=== PATIENT | female | born 1955 | race Caucasian/White ===

== ENCOUNTER 2018-06-10 15:49 | Emergency (ER) | payer MEDICARE, OTHER ==
[~2018-06-10] VITALS: Ht 162.6 cm; Wt 62.0 kg
[~2018-06-10 15:49] MED LIST: ASPI-611 PO; BAC10T PO; CARV3.12 PO; CLOP75TA35 PO; DOCU-28 PO; DULO-31 PO; FING0.5C3 PO; LISI-600 PO; LORA1TAB PO; LYR75C PO; MONT10TA24 PO; MULT-821 PO; OMEP-84 PO; PER10325T PO; PRAV40TA65 PO
[2018-06-10 16:16] LABS: BASOPHILS % (AUTO) 0.5 % (0-1); EOSINOPHILS # (AUTO) 0.1 X10'3 (0-0.9); EOSINOPHILS % (AUTO) 2.2 % (0-6); HEMOGLOBIN 15.3 g/dl (12.0-16.0); LYMPHOCYTES # (AUTO) 0.2 X10'3 (1.1-4.8); LYMPHOCYTES % (AUTO) 3.7 % (21-51); MEAN CORPUSCULAR HEMOGLOBIN 33.5 PG (27.0-31.0); MEAN CORPUSCULAR HGB CONC 34.1 % (33.0-36.5); MEAN CORPUSCULAR VOLUME 98.3 FL (78-98); MEAN PLATELET VOLUME 7.5 FL (7.4-10.4); MONOCYTES # (AUTO) 0.4 X10'3 (0-0.9); MONOCYTES % (AUTO) 8.4 % (2-12); NEUTROPHILS # (AUTO) 4.3 X10'3 (1.8-7.7); NEUTROPHILS % (AUTO) 85.2 % (42-75); PLATELET COUNT 233 X10'3 (140-440); RED BLOOD COUNT 4.57 X10'6 (4.20-5.60); RED CELL DISTRIBUTION WIDTH 13.5 % (11.5-14.5)
[2018-06-10 16:28] LABS: PARTIAL THROMBOPLASTIN TIME 29 SECONDS (22-32); PROTHROMBIN TIME 10.1 SECONDS (9.0-12.0)
[2018-06-10 16:29] LABS: CLARITY,URINE CLEAR (Clear); COLOR,URINE YELLOW (Yellow); GLUCOSE, URINE NEGATIVE (Neg); KETONES,URINE NEGATIVE (Neg); LEUKOCYTE ESTERASE ,URINE NEGATIVE (Neg); NITRITES, URINE NEGATIVE (Neg); OCCULT BLOOD,URINE NEGATIVE (Neg); PROTEIN,URINE NEGATIVE (Neg); UROBILINOGEN,URINE 0.2 E.U/dL (0.2-1.0)
[2018-06-10 16:31] LABS: UA COLLECTION TYPE CLN CATCH MIDSTREAM
[2018-06-10 16:31] LABS: ALANINE AMINOTRANSFERASE 21 U/L (12-78); ALBUMIN 3.9 G/DL (3.4-5.0); ALKALINE PHOSPHATASE 79 IU/L (46-116); ANION GAP 5 (8-16); ASPARTATE AMINO TRANSFERASE 18 U/L (10-37); BILIRUBIN,TOTAL 0.8 MG/DL (0.1-1.0); BLOOD UREA NITROGEN 26 MG/DL (7-18); BUN/CREATININE RATIO 37.1 (6.6-38.0); CALCIUM 9.7 MG/DL (8.5-10.1); CHLORIDE 103 MMOL/L (99-107); GLUCOSE 132 MG/DL (70-104); POTASSIUM 4.3 MMOL/L (3.5-5.1); SODIUM 141 MMOL/L (135-145); TOTAL CARBON DIOXIDE 33.1 MMOL/L (24-32); TOTAL PROTEIN 7.8 G/DL (6.4-8.2); eGFR 85 ML/MIN
[2018-06-10] MEDS ORDERED: BISA-155 PO (17:43)
[2018-06-10] MEDS ORDERED: MAGN296S50 PO (17:43)
[2018-06-10 18:05] VITALS: BP 136/70
== END 2018-06-10 18:08 | disposition home or self-care (01) ==
LOC: ER 15:49
DX: R07.89 Other chest pain (principal); K59.00 Constipation, unspecified; I10 Essential (primary) hypertension; I25.2 Old myocardial infarction; J45.909 Unspecified asthma, uncomplicated; K21.9 Gastro-esophageal reflux disease without esophagitis; G89.29 Other chronic pain; Z95.1 Presence of aortocoronary bypass graft; Z79.82 Long term (current) use of aspirin; Z88.1 Allergy status to other antibiotic agents; Z88.8 Allergy status to other drugs, medicaments and biological substances
CPT/HCPCS: 36415; 71045; 80053; 81003; 84484; 85025; 85610; 85730; 93005; 99285

== ENCOUNTER 2019-09-06 14:20 | Emergency (ER) | payer MEDICARE ==
[~2019-09-06] VITALS: Ht 162.6 cm; Wt 68.0 kg
[~2019-09-06 14:20] MED LIST changes: +BISA-155 PO; +MAGN296S50 PO
[2019-09-06 14:34] VITALS: BP 130/53
[2019-09-06] MEDS ORDERED: ketorolac tromethamine 15mg/ml inj. IM ONE (15:10)
--- NOTE | 2019-09-06 15:22 | NUR ---
pt medicated with pain inj torodol .pt to x ray.significant other atbedside.
[2019-09-06] MEDS ORDERED: HYDR-4383 PO (15:59)
[2019-09-06] MEDS ORDERED: ONDA4TAB6 PO (15:59)
== END 2019-09-06 16:04 | disposition home or self-care (01) ==
LOC: ER 14:21
DX: M54.6 Pain in thoracic spine (principal); I10 Essential (primary) hypertension; I25.2 Old myocardial infarction; K21.9 Gastro-esophageal reflux disease without esophagitis; J45.909 Unspecified asthma, uncomplicated; G89.29 Other chronic pain; F32.9 Major depressive disorder, single episode, unspecified; Z98.61 Coronary angioplasty status; Z88.1 Allergy status to other antibiotic agents; Z88.8 Allergy status to other drugs, medicaments and biological substances; Z79.82 Long term (current) use of aspirin; Z79.899 Other long term (current) drug therapy; W01.0XXA Fall on same level from slipping, tripping and stumbling without subsequent striking against object, initial encounter; Y93.89 Activity, other specified; Y92.89 Other specified places as the place of occurrence of the external cause; Y99.8 Other external cause status
CPT/HCPCS: 72070; 99283; J1885; 99284

== ENCOUNTER 2020-08-26 16:40 | Emergency (ER) | payer MEDICARE, MEDICAID ==
[~2020-08-26] VITALS: Ht 165.1 cm; Wt 72.7 kg
[~2020-08-26 16:40] MED LIST changes: +HYDR-4383 PO; -MAGN296S50 PO; +MAGN296S70 PO; -MONT10TA24 PO; +MONT10TA26 PO; +ONDA4TAB6 PO
[2020-08-26 17:29] LABS: BASOPHILS % (AUTO) 0.4 % (0-1); EOSINOPHILS # (AUTO) 0.1 X10'3 (0-0.9); EOSINOPHILS % (AUTO) 1.2 % (0-6); HEMATOCRIT 39.5 % (35.0-45.0); HEMOGLOBIN 13.4 g/dl (12.0-16.0); LYMPHOCYTES # (AUTO) 0.6 X10'3 (1.1-4.8); LYMPHOCYTES % (AUTO) 11.6 % (21-51); MEAN CORPUSCULAR HEMOGLOBIN 31.4 PG (27.0-31.0); MEAN CORPUSCULAR HGB CONC 33.9 g/dL (33.0-36.5); MEAN CORPUSCULAR VOLUME 92.7 FL (78-98); MEAN PLATELET VOLUME 7.2 FL (7.4-10.4); MONOCYTES # (AUTO) 0.5 X10'3 (0-0.9); MONOCYTES % (AUTO) 10.7 % (2-12); NEUTROPHILS # (AUTO) 3.8 X10'3 (1.8-7.7); NEUTROPHILS % (AUTO) 76.1 % (42-75); PLATELET COUNT 248 X10'3 (140-440); RED BLOOD COUNT 4.26 X10'6 (4.20-5.60); RED CELL DISTRIBUTION WIDTH 16.4 % (11.5-14.5)
[2020-08-26 17:44] LABS: ALANINE AMINOTRANSFERASE 38 U/L (12-78); ALBUMIN 3.5 G/DL (3.4-5.0); ALBUMIN/GLOBULIN RATIO 0.9 (1.1-1.5); ALKALINE PHOSPHATASE 88 IU/L (46-116); ANION GAP 8 (8-16); ASPARTATE AMINO TRANSFERASE 27 U/L (10-37); BILIRUBIN,TOTAL 0.8 MG/DL (0.1-1.0); BLOOD UREA NITROGEN 17 MG/DL (7-18); CALCIUM 9.4 MG/DL (8.5-10.1); CHLORIDE 101 MMOL/L (99-107); CREATININE 0.68 MG/DL (0.40-0.90); GLUCOSE 189 MG/DL (70-104); POTASSIUM 3.9 MMOL/L (3.5-5.1); SODIUM 137 MMOL/L (135-145); TOTAL PROTEIN 7.4 G/DL (6.4-8.2); eGFR 87 ML/MIN
--- NOTE | 2020-08-26 18:48 | NUR ---
daughter called to check on pt staus, I let her know that her mom is still being worked up, she will call back in an hour or so
[2020-08-26] MEDS ORDERED: iohexol 300mg/ml 100ml inj. ONE (19:20)
--- NOTE | 2020-08-26 20:47 | NUR ---
Breaking primary RN, pt is on the phone, no needs at this time
[2020-08-26 21:52] VITALS: BP 116/43
== END 2020-08-26 22:20 | disposition home or self-care (01) ==
LOC: ER 16:40
DX: R06.02 Shortness of breath (principal); G35 Multiple sclerosis; I10 Essential (primary) hypertension; J45.909 Unspecified asthma, uncomplicated; K21.9 Gastro-esophageal reflux disease without esophagitis; G89.29 Other chronic pain; I25.10 Atherosclerotic heart disease of native coronary artery without angina pectoris; Z98.890 Other specified postprocedural states; Z79.82 Long term (current) use of aspirin; Z79.899 Other long term (current) drug therapy; Z88.1 Allergy status to other antibiotic agents; Z88.8 Allergy status to other drugs, medicaments and biological substances; Z85.118 Personal history of other malignant neoplasm of bronchus and lung; Z95.5 Presence of coronary angioplasty implant and graft
CPT/HCPCS: 36415; 71045; 71260; 74177; 80053; 83880; 84484; 85025; 93005; 99285; Q9967

== ENCOUNTER 2021-06-17 15:18 | Emergency (ER) | payer MEDICARE, MEDICAID ==
[~2021-06-17] VITALS: Ht 162.6 cm; Wt 72.7 kg
[~2021-06-17 15:18] MED LIST changes: +CLOP75TA34 PO; -CLOP75TA35 PO; -LISI-600 PO; +LISI20TA28 PO; -MONT10TA26 PO; +MONT10TA32 PO
[2021-06-17 16:46] VITALS: BP 126/62
[2021-06-17] MEDS ORDERED: iohexol 350MG/ML 100ml bottle IV ONE (17:19)
[2021-06-17 17:21] LABS: BASOPHILS % (AUTO) 0.3 % (0-1); EOSINOPHILS # (AUTO) 0.2 X10'3 (0-0.9); EOSINOPHILS % (AUTO) 2.3 % (0-6); HEMATOCRIT 40.5 % (35.0-45.0); HEMOGLOBIN 13.3 g/dl (12.0-16.0); LYMPHOCYTES # (AUTO) 0.6 X10'3 (1.1-4.8); MEAN CORPUSCULAR HEMOGLOBIN 30.8 PG (27.0-31.0); MEAN CORPUSCULAR HGB CONC 32.8 g/dL (33.0-36.5); MEAN CORPUSCULAR VOLUME 93.7 FL (78-98); MEAN PLATELET VOLUME 7.3 FL (7.4-10.4); MONOCYTES # (AUTO) 0.7 X10'3 (0-0.9); MONOCYTES % (AUTO) 9.8 % (2-12); NEUTROPHILS # (AUTO) 5.6 X10'3 (1.8-7.7); NEUTROPHILS % (AUTO) 78.6 % (42-75); PLATELET COUNT 226 X10'3 (140-440); RED BLOOD COUNT 4.32 X10'6 (4.20-5.60); RED CELL DISTRIBUTION WIDTH 14.5 % (11.5-14.5); WHITE BLOOD COUNT 7.2 X10'3 (4.5-11.0)
[2021-06-17 17:36] LABS: ALANINE AMINOTRANSFERASE 27 U/L (12-78); ALBUMIN 3.6 G/DL (3.4-5.0); ALBUMIN/GLOBULIN RATIO 0.8 (1.1-1.5); ALKALINE PHOSPHATASE 95 IU/L (46-116); ANION GAP 12 (8-16); ASPARTATE AMINO TRANSFERASE 25 U/L (10-37); BILIRUBIN,TOTAL 0.7 MG/DL (0.1-1.0); BLOOD UREA NITROGEN 20 MG/DL (7-18); CALCIUM 9.5 MG/DL (8.5-10.1); CHLORIDE 104 MMOL/L (99-107); CREATININE 0.77 MG/DL (0.40-0.90); GLUCOSE 131 MG/DL (70-104); POTASSIUM 4.3 MMOL/L (3.5-5.1); SODIUM 142 MMOL/L (135-145); TOTAL CARBON DIOXIDE 26.1 MMOL/L (24-32); eGFR 75 ML/MIN
[2021-06-17] MEDS ORDERED: furosemide 10 MG/1 ML 10ml inj IV ONE (18:50)
[2021-06-17] MEDS ORDERED: FURO-150 PO (19:41)
[2021-06-17] MEDS ORDERED: POTA10TA19 PO (19:41)
[2021-06-17] MEDS ORDERED: HYDR-3965 PO (19:47)
== END 2021-06-17 20:05 | disposition home or self-care (01) ==
LOC: ER 15:19
DX: J90 Pleural effusion, not elsewhere classified (principal); Z20.822 Contact with and (suspected) exposure to COVID-19; R07.81 Pleurodynia; R06.02 Shortness of breath; R55 Syncope and collapse; R07.89 Other chest pain; R05 Cough; R53.1 Weakness; I10 Essential (primary) hypertension; I25.2 Old myocardial infarction; J44.9 Chronic obstructive pulmonary disease, unspecified; K21.9 Gastro-esophageal reflux disease without esophagitis; G89.29 Other chronic pain; F32.9 Major depressive disorder, single episode, unspecified; Z85.118 Personal history of other malignant neoplasm of bronchus and lung; Z98.890 Other specified postprocedural states; Z88.1 Allergy status to other antibiotic agents; Z88.8 Allergy status to other drugs, medicaments and biological substances; Z79.82 Long term (current) use of aspirin; Z79.899 Other long term (current) drug therapy
CPT/HCPCS: 36415; 71045; 71275; 80053; 83880; 84484; 85025; 87635; 96374; 99285; C9803; J1940; Q9967

== ENCOUNTER 2022-03-19 11:31 | Emergency (ER) | payer MEDICARE, MEDICAID ==
[~2022-03-19] VITALS: Ht 162.6 cm; Wt 59.1 kg
[~2022-03-19 11:31] MED LIST changes: +MONT-40 PO; -MONT10TA32 PO
--- NOTE | 2022-03-19 12:13 | NUR ---
CALLED INTO PT'S ROOM. FOUND PT TO HAVE HR 180-200 BPM. CRASH CART TO BEDSIDE, PADS PLACED, EKG CALLED, AND MD NOTIFIED
--- NOTE | 2022-03-19 12:14 | NUR ---
PRIMARY RN UNABLE TO COME TO BEDSIDE. MYSELF AND ALESHA Magallanes RN AT BEDSIDE TO ASSIST PT.
[2022-03-19 12:16] LABS: HEMATOCRIT 32.2 % (35.0-45.0); HEMOGLOBIN 10.5 g/dl (12.0-16.0); MEAN CORPUSCULAR HEMOGLOBIN 28.9 PG (27.0-31.0); MEAN CORPUSCULAR HGB CONC 32.5 g/dL (33.0-36.5); MEAN CORPUSCULAR VOLUME 89.1 FL (78-98); RED BLOOD COUNT 3.62 X10'6 (4.20-5.60); RED CELL DISTRIBUTION WIDTH 16.9 % (11.5-14.5); WHITE BLOOD COUNT 8.8 X10'3 (4.5-11.0)
[2022-03-19 12:17] LABS: BASOPHILS % (AUTO) 0.2 % (0-1); EOSINOPHILS % (AUTO) 0.1 % (0-6); LYMPHOCYTES # (AUTO) 0.6 X10'3 (1.1-4.8); LYMPHOCYTES % (AUTO) 6.6 % (21-51); MEAN PLATELET VOLUME 7.1 FL (7.4-10.4); MONOCYTES # (AUTO) 0.8 X10'3 (0-0.9); MONOCYTES % (AUTO) 9.2 % (2-12); NEUTROPHILS # (AUTO) 7.4 X10'3 (1.8-7.7); NEUTROPHILS % (AUTO) 83.9 % (42-75); PLATELET COUNT 337 X10'3 (140-440)
--- NOTE | 2022-03-19 12:18 | NUR ---
ZOEY NIETO AT BEDSIDE
[2022-03-19] MEDS ORDERED: diltiazem 5mg/ml 5ml inj. IV ONE ×4 (12:20→12:50)
--- NOTE | 2022-03-19 12:20 | NUR ---
10MG CARDIZEM VERBAL ORDER OBTAINED BY ZOEY NIETO
--- NOTE | 2022-03-19 12:20 | NUR ---
ATTEMPED TO PLACE PIV PT ONLY HAS [address] PER EDMD SECOND PIV TO BE HELD AT THIS TIME.
--- NOTE | 2022-03-19 12:24 | NUR ---
PT HAS FENATNYL PATCH PLACED AT HOME; OK TO BE LEFT PER DR NIETO.
[2022-03-19] MEDS ORDERED: fentaNYL/PF 50MCG/1 ML 2ML syringe IV ONE (12:25)
[2022-03-19 12:32] LABS: ALANINE AMINOTRANSFERASE 26 U/L (12-78); ALBUMIN 2.9 G/DL (3.4-5.0); ALBUMIN/GLOBULIN RATIO 0.6 (1.1-1.5); ALKALINE PHOSPHATASE 82 IU/L (46-116); ANION GAP 9 (8-16); ASPARTATE AMINO TRANSFERASE 34 U/L (10-37); BILIRUBIN,TOTAL 0.6 MG/DL (0.1-1.0); BLOOD UREA NITROGEN 17 MG/DL (7-18); CALCIUM 9.9 MG/DL (8.5-10.1); CHLORIDE 98 MMOL/L (99-107); CREATININE 0.74 MG/DL (0.40-0.90); GLUCOSE 176 MG/DL (70-104); POTASSIUM 3.9 MMOL/L (3.5-5.1); SODIUM 137 MMOL/L (135-145); TOTAL CARBON DIOXIDE 29.6 MMOL/L (24-32); TOTAL PROTEIN 7.5 G/DL (6.4-8.2); eGFR 79 ML/MIN
--- NOTE | 2022-03-19 12:46 | NUR ---
Verbal order for additional 10mg Cardizem obtained.
[2022-03-19] MEDS ORDERED: normal saline 1000ML IV soln IVB ONE (12:50)
[2022-03-19] MEDS ORDERED: LORazepam 2 mg/ml vial IV ONE (13:15)
[2022-03-19 14:03] VITALS: BP 152/95
== END 2022-03-19 16:14 | disposition home or self-care (01) ==
LOC: ER 11:32
DX: C34.90 Malignant neoplasm of unspecified part of unspecified bronchus or lung (principal); G89.29 Other chronic pain; I11.9 Hypertensive heart disease without heart failure; J44.9 Chronic obstructive pulmonary disease, unspecified; K21.9 Gastro-esophageal reflux disease without esophagitis; F32.A Depression, unspecified; Z88.1 Allergy status to other antibiotic agents; Z88.8 Allergy status to other drugs, medicaments and biological substances; Z79.899 Other long term (current) drug therapy
CPT/HCPCS: 36415; 71045; 80053; 83880; 84484; 85025; 93005; 96374; 96375; 96376; 99285; J2060; J3010; J3490; J7030